=== PATIENT | female | born 1960 | race Caucasian/White ===

== ENCOUNTER 2019-05-17 14:49 | Inpatient (IN) ==
[2019-05-17] MEDS ORDERED: VANCOMYCIN IV PER PHARMACY MISC SCH (15:00)
[2019-05-17 18:00] LABS: BASO# 0.06 X1000 (0.0-0.2); BASO% 0.5 % (0.0-0.8); EOS# 0.24 X1000 (0.0-0.7); EOS% 1.9 % (0.0-10.0); HEMATOCRIT 31.6 % (37.0-47.0); HEMOGLOBIN 10.1 g/dL (12.0-16.0); IMM GRAN# 0.03 X1000 (0.0-0.04); IMM GRAN% 0.2 % (0.0-0.5); LYMPH% 18.2 % (20.5-51.1); MCH 27.7 PG (27-31); MCV 86.6 FL (81-99); MONO# 0.82 X1000 (0.11-0.59); MONO% 6.5 % (1.7-9.3); MPV 9.5 FL (7.4-10.4); NEUT# 9.16 X1000 (1.4-6.5); NEUT% 72.7 % (42.2-75.2); PLT 428 X1000 (130-400); RBC 3.65 XMIL (4.2-5.4); RDW 14.5 % (11.5-14.5); WBC 12.61 X1000 (4.8-10.8)
[2019-05-17 18:26] LABS: AGAP 12; BUN 8 mg/dL (8-22); CALCIUM 8.2 mg/dL (8.8-10.2); CHLORIDE 98 mmol/L (98-107); COSMO 275; CREATININE 0.7 mg/dL (0.5-0.9); ESTIMATED GFR > 60; GLUCOSE 124 mg/dL (70-104); SODIUM 138 mmol/L (136-145); TCO2 28 mmol/L (25-35)
[2019-05-17] MEDS ORDERED: VANCOMYCIN 1,950 MG in NS 500 ML IV ONE (20:00)
[2019-05-17] MEDS: COREG PO SCH (20:07)
[2019-05-17] MEDS: ZOCOR PO SCH (20:07)
[2019-05-18] MEDS: MORPHINE IV PRN ×3 (05:59→12:42)
--- NOTE | 2019-05-18 08:17 | Diag Imaging Result Doc PS360 ---
CT ABD/PELVIS W/IV CONT ONLY - 05/18/2019 INDICATION: post operative wound infection, seroma COMPARISON: 04/27/2019 FINDINGS: The deep subcutaneous fluid collection at the anterior left pelvic body wall has decreased slightly in size. The collection now measures 4.5 x 8 cm previously measuring 5.5 x 8.3 cm. There is slight increase in the surrounding inflammatory stranding. There is also increase in the overlying skin thickening indicating cellulitis. No soft tissue gas. No internal fluid collections. No bowel obstruction or inflammation. There are cholecystectomy clips. Otherwise all abdominal organs are normal. Uterus is absent. Urinary bladder and rectum are normal. There are moderate degenerative changes of the spine. No acute or suspicious bony lesion. IMPRESSION: Mixed changes from prior. This exam was performed using automated exposure control, adjustment of mA or kV according to patient size, and/or use of iterative reconstruction technique Electronically signed by Chavo Parmar 05/18/2019 8:15 AM
[2019-05-18] MEDS: ROBAXIN PO SCH (09:46)
[2019-05-18] MEDS: NORVASC PO SCH (09:46)
[2019-05-18] MEDS: COREG PO SCH ×2 (09:46→22:54)
[2019-05-18] MEDS: MICARDIS PO SCH (09:47)
[2019-05-18] MEDS: LOFIBRA PO SCH (09:47)
[2019-05-18] MEDS ORDERED: NICODERM PATCH TD ONE (12:19)
[2019-05-18] MEDS ORDERED: DIPRIVAN 1% ONE (15:06)
[2019-05-18] MEDS ORDERED: VERSED ONE (15:09)
[2019-05-18] MEDS: VANCOMYCIN 1,550 MG in NS 250 ML IV SCH (15:24)
[2019-05-18] MEDS ORDERED: DILAUDID ONE (15:54)
[2019-05-18] MEDS: DILAUDID ONE ×2 (16:26→16:36)
[2019-05-18] MEDS ORDERED: PERCOCET-10 ONE (16:29)
[2019-05-18] MEDS ORDERED: LR 500 ML ONE (16:30)
--- NOTE | 2019-05-18 17:53 | OPERATIVE NOTE ---
PROCEDURE DATE: 05/18/2019 PREOPERATIVE DIAGNOSIS: Postoperative wound infection. POSTOPERATIVE DIAGNOSIS: Postoperative wound infection. PROCEDURE: Incision and drainage of abdominal wall abscess. SURGEON: Lennox Cummings MD. ANESTHESIA: General. ESTIMATED BLOOD LOSS: 25 mL. COMPLICATIONS: None apparent. SPECIMENS: Culture of pus. FINDINGS: Large purulent fluid collection between the subcutaneous fat and fascia. There was no exposed mesh. TECHNIQUE: The patient was brought to the operating room and placed supine on the table. General anesthesia was induced. She was prepped and draped in the usual sterile fashion. A knife was used to open up her previous left lower quadrant incision. We opened it partially and then divided the subcutaneous tissues sharply with a knife and entered the abscess cavity. Purulent fluid was cultured and suctioned out. We then washed it out copiously with saline and packed the wound with Betadine and saline moistened Kerlix gauze. She tolerated this well and was transferred to the recovery room. There were no apparent complications. cc: Lennox Cummings MD
[2019-05-18] MEDS: ZOFRAN IV PRN ×2 (18:44→22:53)
[2019-05-18] MEDS: ZOCOR PO SCH (22:54)
[2019-05-18] MEDS: PERCOCET-5 PO SCH (22:54)
[2019-05-19] MEDS: PERCOCET-5 PO SCH ×4 (04:47→21:25)
[2019-05-19] MEDS: ZOFRAN IV PRN (04:47)
[2019-05-19] MEDS: NORVASC PO SCH (09:51)
[2019-05-19] MEDS: LOFIBRA PO SCH (09:51)
[2019-05-19] MEDS: PERIDEX MT SCH ×2 (09:51→21:24)
[2019-05-19] MEDS: NICODERM PATCH TD SCH (09:51)
[2019-05-19] MEDS: COREG PO SCH ×2 (09:51→21:25)
[2019-05-19] MEDS: ROBAXIN PO SCH (09:51)
[2019-05-19] MEDS: MICARDIS PO SCH (09:52)
[2019-05-19] MEDS: MORPHINE IV PRN (09:58)
--- NOTE | 2019-05-19 12:14 | GENERAL SURGERY PROGRESS NOTE ---
DATE: 05/19/2019 SUBJECTIVE: The patient feels much better. She denies pain, nausea, vomiting, or fever. OBJECTIVE: She is afebrile. Vital signs are stable. General: She is awake, alert, and oriented x3. No acute distress. GI: Soft. The left lower quadrant wound has been repacked. It is clean. The surrounding erythema and edema are improved. Laboratory: None today. Culture data so far shows gram-positive cocci on the Gram stain. ASSESSMENT AND PLAN: A 59-year-old female with left lower quadrant wound infection, status post incision and drainage of abscess. We will continue dressing changes, vancomycin, and we await culture results. cc: Lennox Cummings MD
[2019-05-19] MEDS: VANCOMYCIN 1,550 MG in NS 250 ML IV SCH (18:42)
[2019-05-19] MEDS: ZOCOR PO SCH (21:24)
[2019-05-20] MEDS: PERCOCET-5 PO SCH ×4 (03:30→20:03)
[2019-05-20] MEDS: MORPHINE IV PRN (06:03)
--- NOTE | 2019-05-20 06:03 | GENERAL SURGERY PROGRESS NOTE ---
DATE: 05/20/2019 SUBJECTIVE: The patient feels so much better. OBJECTIVE: Vital Signs: She is afebrile. Vital signs are stable. General: She is awake, alert, and oriented x3. No acute distress. GI: The left lower quadrant wound was examined, there is no gross purulence. The pannus remains edematous, indurated and erythematous, but this is not worsened. No crepitance. LABORATORY DATA: None today. Wound culture shows gram-positive cocci. ASSESSMENT AND PLAN: A 59-year-old female with left lower quadrant wound infection. She is status post incision and drainage. We are awaiting identification of the bacteria. I anticipate discharge tomorrow with wet-to-dry dressings and oral antibiotics. cc: Lennox Cummings MD
[2019-05-20] MEDS: NORVASC PO SCH (09:33)
[2019-05-20] MEDS: NICODERM PATCH TD SCH (09:33)
[2019-05-20] MEDS: LOFIBRA PO SCH (09:33)
[2019-05-20] MEDS: PERIDEX MT SCH ×2 (09:35→20:03)
[2019-05-20] MEDS: COREG PO SCH ×2 (09:35→20:03)
[2019-05-20] MEDS: MICARDIS PO SCH (09:35)
[2019-05-20] MEDS: ROBAXIN PO SCH (09:35)
[2019-05-20] MEDS: ZOFRAN IV PRN (12:00)
[2019-05-20] MEDS: VANCOMYCIN 1,000 MG in NS 250 ML IV SCH (13:18)
[2019-05-20] MEDS: ZOCOR PO SCH (20:03)
[2019-05-21] MEDS: MORPHINE IV PRN (00:28)
[2019-05-21] MEDS: VANCOMYCIN 1,000 MG in NS 250 ML IV SCH (01:20)
[2019-05-21] MEDS: PERCOCET-5 PO SCH ×2 (03:26→08:24)
[2019-05-21 06:00] LABS: BASO# 0.05 X1000 (0.0-0.2); BASO% 0.6 % (0.0-0.8); EOS# 0.35 X1000 (0.0-0.7); HEMATOCRIT 28.4 % (37.0-47.0); HEMOGLOBIN 8.8 g/dL (12.0-16.0); IMM GRAN# 0.07 X1000 (0.0-0.04); IMM GRAN% 0.8 % (0.0-0.5); LYMPH# 2.17 X1000 (1.2-3.4); MCH 27.3 PG (27-31); MCV 88.2 FL (81-99); MONO# 0.56 X1000 (0.11-0.59); MONO% 6.4 % (1.7-9.3); MPV 9.6 FL (7.4-10.4); NEUT# 5.49 X1000 (1.4-6.5); NEUT% 63.2 % (42.2-75.2); PLT 432 X1000 (130-400); RBC 3.22 XMIL (4.2-5.4); RDW 14.4 % (11.5-14.5); WBC 8.69 X1000 (4.8-10.8)
[2019-05-21 06:27] LABS: AGAP 11; BUN 8 mg/dL (8-22); CALCIUM 8.9 mg/dL (8.8-10.2); CHLORIDE 103 mmol/L (98-107); COSMO 283; CREATININE 0.6 mg/dL (0.5-0.9); ESTIMATED GFR > 60; GLUCOSE 90 mg/dL (70-104); POTASSIUM 3.8 mmol/L (3.5-5.1); SODIUM 143 mmol/L (136-145); TCO2 29 mmol/L (25-35)
[2019-05-21 07:34] VITALS: BP 161/78
[2019-05-21] MEDS: PERIDEX MT SCH (08:24)
[2019-05-21] MEDS: NORVASC PO SCH (08:24)
[2019-05-21] MEDS: NICODERM PATCH TD SCH (08:26)
[2019-05-21] MEDS: MICARDIS PO SCH (08:27)
[2019-05-21] MEDS: COREG PO SCH (08:28)
[2019-05-21] MEDS: LOFIBRA PO SCH (08:28)
[2019-05-21] MEDS: ROBAXIN PO SCH (09:24)
[2019-05-21] MEDS ORDERED: CLEOCIN PO SCH (14:00)
--- NOTE | 2019-06-09 18:50 | DISCHARGE SUMMARY ---
ADMISSION DATE: 05/17/2019 DISCHARGE DATE: 05/21/2019 ADMITTING PHYSICIAN: Dr. Lennox Cummings ADMITTING DIAGNOSIS: Postoperative wound infection of the abdominal wall. DISCHARGE DIAGNOSIS: Postoperative wound infection of the abdominal wall. PROCEDURE: Incision and drainage of abdominal wall abscess. HOSPITAL COURSE: The patient was known to me from previous left spigelian hernia repair. She developed a large hematoma or seroma of her left abdominal wall. Then, she developed worsening redness, tenderness and warmth, indicative of infection, and she was admitted for further treatment. For full details of the operation, please see the dictated report on 05/19/2019. She was feeling much better. She denied significant pain or any nausea, vomiting, or fever. Her wound was repacked. There was no more purulent drainage. She had started on vancomycin on admission. The wound culture grew back MSSA sensitive to clindamycin, which she was switched to prior to discharge. On 05/20/2019, she felt much better. Her vital signs were stable. Her abdomen was examined. There was no gross purulence. However, the remaining pannus was edematous, indurated and erythematous but not any worse. There was no crepitus. The next day her wound culture came back and she was stable for discharge. INSTRUCTIONS: She will pack the wound every day and follow up with Dr. Cummings in 1 week. DISCHARGE MEDICATIONS: 1. Clindamycin 300 mg p.o. q.6 hours. 2. She will continue her home Norvasc, fenofibrate, methocarbamol, Percocet, Zocor, Micardis, and carvedilol. cc: Lennox Cummings MD
== END 2019-05-21 09:41 | disposition home or self-care (01) | DRG 857 ==
LOC: DIRADM 14:49 → 4N 17:13
PROVIDERS: ADMIT Surgery; ATTEND Surgery